=== PATIENT | female | born 1960 | race Caucasian/White ===

== ENCOUNTER 2024-05-15 08:27 | Day surgery (SDC) | payer OTHER, SELFPAY ==
[2024-04-19 12:57] VITALS: BMI 35.5
[2024-04-19 14:01] LABS: % Basophils 0.6 % (0-2); % Eosinophils 1.1 % (0-6); % Immature Granulocytes 0.2 % (0-0.5); % Monocytes 8.7 % (1.7-9.3); % Neutrophils 68.4 % (42.2-75.2); Absolute Basophils 0.1 10^3/uL (0-0.2); Absolute Eosinophils 0.1 10^3/uL (0-0.7); Absolute Lymphocytes 1.7 10^3/uL (1.2-3.4); Absolute Monocytes 0.7 10^3/uL (0.1-0.6); Absolute Neutrophils 5.7 10^3/uL (1.4-6.5); Hematocrit 43.1 % (37.0-47.0); Hemoglobin 14.8 g/dL (12.0-16.0); Mean Corp Hgb Conc. 34.3 g/dL (33.0-37.0); Mean Corpuscular Hgb 30.5 pg (27.0-31.0); Mean Corpuscular Volume 88.9 fL (81.0-99.0); Mean Platelet Volume 10.6 fL (7.4-10.4); Nucleated Red Blood Cells % 0 %; Platelet Count 226 10^3/uL (130-400); Red Blood Cell Count 4.85 10^6/uL (4.20-5.40); Red Cell Dist. Width 14.1 % (11.5-14.5); White Blood Cell Count 8.3 10^3/uL (4.8-10.8)
[2024-04-19 14:16] LABS: INR 1.17; PT 14.7 Sec (11.4-14.6)
[2024-04-19 14:19] LABS: ALT (SGPT) 23 U/L (0-35); AST (SGOT) 25 U/L (14-36); Albumin 4.4 g/dl (3.5-5.0); Alkaline Phosphatase 115 U/L (38-126); Blood Urea Nitrogen 16 mg/dl (7-17); Calcium 10.8 mg/dl (8.4-10.2); Carbon Dioxide 28 mmol/L (22-30); Chloride 106 mmol/L (98-107); Estimated Creatinine Clearance 80 ml/min; Glucose 96 mg/dl (70-99); Magnesium 2.4 mg/dl (1.6-2.3); Potassium 4.8 mmol/L (3.5-5.1); Sodium 141 mmol/L (135-145); Total Bilirubin 0.4 mg/dl (0.2-1.3); Total Protein 6.9 g/dl (6.3-8.2); eGFR > 60.00
[2024-05-15] VITALS (15 sets, daily range): BP systolic 96–156; BP diastolic 56–114; BMI 35.0
[2024-05-15 11:19] LABS: ACT-LR - POC 271 Seconds (116-155)
[2024-05-15 11:36] LABS: ACT-LR - POC 282 Seconds (116-155)
--- NOTE | 2024-05-15 11:52 | ITS.CL.ABL ---
[employer] - Ablation
Ablation
Procedure Report:
ELECTROPHYSIOLOGY ABLATION STUDY
�
DATE:: May 15, 2024�����������������������������REFERRING: Dr. Baljit Rasmussen
�
INDICATION: Paroxysmal supraventricular tachycardia in the form of atrial fibrillation.��Review of her prior tracings demonstrated pulmonary vein atrial tachycardia and atrial fibrillation likely from the left pulmonary veins given morphology of P
wave
�
HISTORY: See H and P.��As above
�
ANTIARRHYTHMIC DRUG: Dofetilide
�
PRE-PROCEDURE ARSALAN: No atrial thrombus
�
PRESENTING RHYTHM: Sinus rhythm
�
'TIME-OUT':��called and confirmed.
�
SEDATION/ANESTHESIA:��provided via the anesthesia department using general anesthesia (LMA).
�
INTRAVENOUS/ARTERIAL ACCESS:
Right femoral venous - 8Fr
Left femoral venous - 8 Fr, 6 Fr
Ultrasound guidance for bilateral femoral vein access was utilized by me to obtain access with demonstration of normal anatomy
CHADS-VASC Score:
�
HAS-Bled Score
�
PROCEDURE:
1.��A decapolar CS catheter was placed within the CS for mapping and pacing.��This was also used as the reference catheter for the 3-D map.
�
2. The intracardiac ultrasound catheter was positioned in the RA to identify the FO for targeting of transseptal puncture, assist��in identification of the pulmonary vein ostia, monitoring pre and post ablation pulmonary vein flow velocities,
monitoring for 'bubble' formation during RF application as a sign of thermal injury,��and to monitor for pericardial effusion during mapping and ablation procedure.���Left atrial size, LV ejection fraction, and pulmonary vein flows were monitored
pre and post ablation procedure. The other valves were inspected and found to be free of significant regurgitation or stenosis.
�
3.��Half of the calculated heparin bolus was administered prior to the first transeptal puncture.��Transseptal puncture was performed to diagnose RA and LA pressure so that safety of LA mapping and ablation could be further assessed, and to access
the left atrium and pulmonary veins for mapping and ablation.��This entailed advancing an 8 Fr SL-1 sheath with dilator into the superior vena cava and withdrawing both (monitoring intracardiac ultrasound, fluoroscopy and tip pressure) with the tip
oriented toward the atrial septum.��The fossa ovalis was engaged (indicated by sudden displacement of the sheath tip as well as tenting of the fossa seen on intracardiac ultrasound).��Left atrial access required a pass with the Brockenbrough needle
extended.��Left atrial catheter position was confirmed by pressure monitoring (RA mean pressure 8 mm Hg and LA mean pressure 14 mm Hg), LA saturation (99%),��as well as fluoroscopy.��The sheath was advanced over the dilator and positioned in the
left atrium.��This procedure was repeated for the Agilis sheath.��The remainder of the calculated heparin bolus was administered and heparin was
infused to maintain ACT at 300 -350 seconds throughout the case.
�
4.��RA pacing was performed via the proximal decapolar poles and LA pacing was performed via the distal decapolr poles.
�
5. A quadrapolar catheter was first positioned at the His position for His Bundle recording which was tagged via the 3-D Navex sytem, and then passed to the RVA for RV pacing and recording.
�
6. The multipolar catheter and the PFA catheter were placed in each of the LIPV, LSPV, RSPV and the RIPV.��
�
7.��Next, a 3-D map was created using Navex.���A 3-D reconstructed CT image was compared to the 3-D Navex map to assist in anatomic interpretation, mapping and ablation.��The CT image and the NavX image were fused.
�
8. Pulmonary vein and extrapulmonary lesions were given. A total of 68 lesions were given to the pulmonary veins and the left atrial posterior wall. There was a long left common ostium of the distal juan manuel and 2 separate right pulmonary veins.
Once entrance block was confirmed in all 4 pulmonary veins plus the posterior wall exit block was confirmed in each of these regions. Aggressive burst pacing post ablation with burst pacing down the left atrial fracture as did not induce atrial
flutter or any other nonpulmonary vein trigger for atrial fibrillation.
AV Wenckebach was noted at less than 400 ms
9. Normal sinus node and AV emiliano function
�
TOTAL FLOURO TIME: 12.6 minutes 127 mGy
�
TOTAL RF DURATION: 0 minutes
�
REVERSAL OF HEPARIN: 35 mg of protamine, slow IV administration
�
COMPLICATIONS:
None
Intracardiac US shows no pericardial effusion post ablation.
�
SUMMARY:��
Complex left atrial mapping and ablation.
Isolation of all 4 pulmonary veins and the posterior wall as above
�
RECOMMENDATIONS:
1. Discontinue dofetilide but continue oral anticoagulation and metoprolol
2. Resume anticoagulation
3.��Out of bed 4 hours
4.��Consider same-day discharge
�
Copy to: Dr. Baljit Rasmussen at [facility]
�
--- NOTE | 2024-05-15 15:44 | W.PN.UPDATE ---
Update Note
Progress Note Update
63 yo WF s/p PVI (same day). She has mild chest heaviness, no sob, tessy diet, voiding, amb w/o dizziness, EKG SR, b/l groins c/d/i no HT, soft. She will continue OAC Eliquis tonight, stop dofetilide and continue metoprolol. Activity restrictions
reviewed. She will f/u Dr. Betancourt in 2 mo. She is for d/c home after 430p if groins stable.
SUMMARY:��
Complex left atrial mapping and ablation.
Isolation of all 4 pulmonary veins and the posterior wall as above
�
RECOMMENDATIONS:
1. Discontinue dofetilide but continue oral anticoagulation and metoprolol
2. Resume anticoagulation
3.��Out of bed 4 hours
4.��Consider same-day discharge
�
Copy to: Dr. Baljit Rasmussen at [facility]
== END 2024-05-15 16:30 | disposition home or self-care (01) ==
LOC: CATH 08:27
PROVIDERS: ATTENDING PHYSICIAN Internal Medicine Cardiovascular Disease; FAMILY PHYSICIAN Family Medicine; OTHER PHYSICIAN Internal Medicine Cardiovascular Disease
DX: I48.92 Unspecified atrial flutter (principal); I48.0 Paroxysmal atrial fibrillation; Z79.899 Other long term (current) drug therapy; R25.3 Fasciculation; E78.5 Hyperlipidemia, unspecified; E66.9 Obesity, unspecified; Z68.35 Body mass index [BMI] 35.0-35.9, adult; Z79.01 Long term (current) use of anticoagulants; I47.19 Other supraventricular tachycardia
CPT/HCPCS: C1732; C1894; C1730; C1733; C1769; C1892; C1759; 36415; 76937; 80053; 83735; 85025; 85347; 85610; 86850; 86900; 86901; 93005; 93656